=== PATIENT | male | born 1990 | race Caucasian/White ===

== ENCOUNTER 2018-04-14 16:55 | Emergency (ER) | payer BC ==
[~2018-04-14] VITALS: Ht 188 cm; Wt 95.5 kg
[2018-04-14 17:13] VITALS: BP 131/71; PULSE 69; TEMP 99
== END 2018-04-14 17:50 | disposition home or self-care (01) ==
LOC: COL.ER 16:55
DX: S09.92XA Unspecified injury of nose, initial encounter (principal); W50.0XXA Accidental hit or strike by another person, initial encounter; Y93.67 Activity, basketball